=== PATIENT | female | born 1980 | race Caucasian/White ===

== ENCOUNTER 2016-09-02 15:40 | Outpatient (CLI) | payer OTHER, BC | END 2016-09-02 15:41 | disposition home or self-care (01) | DX: R68.84 Jaw pain (principal) ==

== ENCOUNTER 2018-05-18 10:08 | Outpatient (CLI) | payer OTHER ==
--- NOTE | 2018-05-18 16:11 | Ultrasound Report ---
Reason: TEST POSITIVE, DATING Procedure Date: 05/18/2018 Accession Number: [id number] / [id number] Procedure: US - OB First Trimester CPT Code: FULL RESULT: EXAM: FIRST TRIMESTER OBSTETRIC ULTRASOUND (Less than 11 weeks) EXAM DATE: 05/18/2018 10:41 AM. CLINICAL HISTORY: TEST POSITIVE, DATING. LMP: 03/13/2018. COMPARISONS: None. TECHNIQUE: Transabdominal ultrasound examination with static image documentation. CLINICAL DATES: EGA 9 weeks 3 days with OMEGA 12/18/2018 based on last menstrual period. ASSESSMENT: Gestational Sac: Single intrauterine. Mean gestational sac diameter: 34.3. Embryo: CRL (crown-rump length) 23 mm = 8 weeks 5 days. Cardiac activity: 161 beats per minute. Yolk sac: 3.1 mm. Amniotic fluid: Not accurately assessed at this gestational age. Early placenta: Not visible at this gestational age. Other: No perigestational fluid collection demonstrated. MATERNAL STRUCTURES: Uterus: Anteverted. Unremarkable. Cervix: Closed. Right Ovary/Adnexa: The ovary measures 3.8 x 1.9 x 3.1 cm, volume 11.7 cc. Unremarkable. Left Ovary/Adnexa: The ovary measures 1.9 x 1.2 x 1.8 cm, volume 2.1 cc. Unremarkable. Free Fluid: None. Other: None. IMPRESSION: 1. Single viable intrauterine at EGA 8 weeks 5 days with OMEGA 12/23/2018 based on crown-rump length, which is concordant with clinical dates. 2. Assigned dating is OMEGA 12/18/2018 based on last menstrual period. RADIA
== END 2018-05-18 10:09 | disposition home or self-care (01) ==
LOC: DI 10:08
PROVIDERS: ATTEND Nurse Practitioner Obstetrics & Gynecology
DX: Z32.01 Encounter for pregnancy test, result positive (principal)
CPT/HCPCS: 76801

== ENCOUNTER 2018-05-25 08:00 | Outpatient (CLI) | payer OTHER ==
[2018-05-25 18:52] LABS: MUDS CUTOFF CONCENTRATIONS CUTOFF CONC BELOW:
[2018-05-25 19:39] LABS: AMPHETAMINE SCREEN,URINE NEGATIVE (NEGATIVE); BENZODIAZEPINES SCREEN, URINE NEGATIVE (NEGATIVE); COCAINE SCREEN URINE NEGATIVE (NEGATIVE); METHADONE SCREEN, URINE NEGATIVE (NEGATIVE); METHAMPHETAMINES SCREEN, URINE NEGATIVE (NEGATIVE); OPIATE SCREEN, URINE NEGATIVE (NEGATIVE); OXYCODONE SCREEN, URINE NEGATIVE (NEGATIVE); PROPOXYPHENE SCREEN, URINE NEGATIVE (NEGATIVE); TRICYCLIC ANTIDEPRESSANT,URINE NEGATIVE (NEGATIVE)
== END 2018-05-25 23:59 | disposition home or self-care (01) ==
LOC: LAB.R 08:00
PROVIDERS: ATTEND Nurse Practitioner Obstetrics & Gynecology
DX: Z36.89 Encounter for other specified antenatal screening (principal)
CPT/HCPCS: 80306

== ENCOUNTER 2018-05-25 12:20 | Outpatient (CLI) | payer OTHER ==
[2018-05-25 13:03] LABS: BASOPHILS # (AUTO) 0.1 10^3/uL (0.0-0.1); EOSINOPHILS # (AUTO) 0.1 10^3/uL (0.0-0.7); EOSINOPHILS % (AUTO) 1.3 %; HGB - HEMOGLOBIN 12.3 g/dL (12.0-16.0); LYMPHOCYTES # (AUTO) 1.7 10^3/uL (1.5-3.5); LYMPHOCYTES % (AUTO) 22.9 %; MEAN CORPUSCULAR HEMOGLOBIN 30.9 pg (27.0-31.0); MEAN CORPUSCULAR HGB CONC 34.4 g/dL (32.0-36.0); MEAN PLATELET VOLUME 7.9 fL (7.9-10.8); MONOCYTES # (AUTO) 0.5 10^3/uL (0.0-1.0); MONOCYTES % (AUTO) 6.8 %; NEUTROPHILS # (AUTO) 5.2 10^3/uL (1.5-6.6); PLT - PLATELET COUNT 244 10^3/uL (130-450); RED BLOOD COUNT 3.99 10^6/uL (4.20-5.40); RED CELL DISTRIBUTION WIDTH 12.5 % (12.0-15.0); WHITE BLOOD COUNT 7.6 x10^3/uL (4.8-10.8)
[2018-05-25 13:11] LABS: BILIRUBIN,URINE NEGATIVE (NEGATIVE); GLUCOSE, URINE (UA) NEGATIVE (NEGATIVE); KETONES,URINE (UA) NEGATIVE (NEGATIVE); LEUKOCYTE ESTERASE, URINE NEGATIVE (NEGATIVE); NITRITE,URINE NEGATIVE (NEGATIVE); OCCULT BLOOD,URINE NEGATIVE (NEGATIVE); PROTEIN,URINE NEGATIVE (NEGATIVE); UROBILINOGEN,URINE 0.2 (NORMAL) E.U./dL (NORMAL)
[2018-05-25 13:18] LABS: CLARITY,URINE CLEAR (CLEAR)
[2018-05-25 13:27] LABS: BACTERIA,URINE Rare /HPF (None Seen); RBC,URINE 0-5 /HPF (0-5); SQUAMOUS EPITHELIAL CELL,UR RARE Squamous (<= Few)
[2018-05-26 13:02] LABS: HEPATITIS B SURFACE ANTIGEN NON-REACTIVE (NON-REACTIVE); HEPATITIS C ANTIBODY NON-REACTIVE (NON-REACTIVE)
[2018-05-26 13:56] LABS: HIV AG/AB 4TH GEN NON-REACTIVE (NON-REACTIVE)
== END 2018-05-25 12:21 | disposition home or self-care (01) ==
LOC: LAB 12:20
PROVIDERS: ATTEND Nurse Practitioner Obstetrics & Gynecology
DX: Z36.89 Encounter for other specified antenatal screening (principal); O09.519 Supervision of elderly primigravida, unspecified trimester
CPT/HCPCS: 36415; 80306; 81001; 81599; 85025; 86592; 86762; 86777; 86803; 86850; 86900; 86901; 87086; 87340; 87389

== ENCOUNTER 2018-08-23 11:42 | Emergency (ER) | payer MEDICAID, OTHER ==
[2018-08-23 11:56] VITALS: BP 113/72
--- NOTE | 2018-08-23 12:32 | ED Physician Documentation ---
History of Present Illness - Stated complaint Stated Complaint: RIGHT FT PX - Chief complaint Chief Complaint: Ext Problem - History obtained from History obtained from: Patient - Additonal information Additional information: Patient is a 38-year-old female, approximately 6 months , presenting with concern for right heel pain over the past 4-5 days. Patient denies inciting incident or known trauma. Patient has had Achilles tendinitis in the past and reports symptoms feel similar to such. Patient reports pain only at the heel, not into the foot or calf. Patient denies significant change in sensation, strength, range of motion to the right lower extremity. Patient also denies any particular bruising, swelling, or erythema. No particular improving or worsening factors noted to her symptoms. Review of Systems Skin: denies: Rash Musculoskeletal: reports: Extremity pain PD PAST MEDICAL HISTORY - Past Medical History Past Medical History: No - Present Medications Home Medications: Ambulatory Orders Medication Instructions Recorded Confirmed Pnv No.95/Ferrous Fum/Folic AC 08/23/18 [ Caplet] - Allergies Allergies/Adverse Reactions: Allergies Allergy/AdvReac Type Severity Reaction Status Date / Time No Known Drug Allergies Allergy Verified 08/23/18 11:56 PD ED PE NORMAL - General General: Alert and oriented X 3, No acute distress, Well developed/nourished - HEENT HEENT: Atraumatic - Cardiac Cardiac: Strong equal pulses (Cap refill brisk) - Respiratory Respiratory: No respiratory distress - Derm Derm: Normal color, Warm and dry, No rash - Extremities Extremities: No deformity, Normal ROM s pain, No edema, No calf tenderness / cord. No: No tenderness to palpate (Extremely mild tenderness over insertion point of Achilles into right heel. No evidence of significant tear or rupture. No calf tenderness or pain. Full range of motion of left lower extremity. No changes in strength or sensation to left lower extremity.) - Neuro Neuro: No motor deficit, No sensory deficit - Psych Psych: Normal mood, Normal affect Results - Vitals Vitals: Vital Signs - 24 hr 08/23/18 11:54 Temperature 36.2 C L Heart Rate 79 Respiratory 14 Rate Blood Pressure 113/72 O2 Saturation 95 Oxygen O2 Source Room air PD MEDICAL DECISION MAKING - ED course Complexity details: reviewed old records, considered differential, d/w patient ED course: Most concerning for Achilles tendinitis as opposed to significant tear or rupture, particularly given previous episodes of such and lack of traumatic mechanism at this time. Do not find evidence of sensory or motor deficit, trauma, or other infection on exam. Do not feel patient requires imaging or other interventions at this time, particularly given her current . Patient also denies any complications with or complaints related to such today. Discussed use of boot for additional support, as well as other supportive cares, return precautions and follow-up. Patient voiced understanding and is comfortable with discharge plan. Departure - Departure Disposition: 01 Home, Self Care Clinical Impression: Achilles tendonitis Qualifiers: Laterality: right Qualified Code(s): M76.61 - Achilles tendinitis, right leg Condition: Good Instructions: Tendinitis Foot Follow-Up: Katerine Nance ARNP [Primary Care Provider] - Within 3 Days Comments: May use Tylenol to help with inflammation. Also recommend ice application and elevation when not on your feet. Please use boot for extra stability and support when on your feet. Follow-up with your primary care physician and SPRING SALVAGE WORKER as scheduled or in the next 2-3 days. Return to ED sooner if expands worsening symptoms or other concerns.
== END 2018-08-23 12:59 | disposition home or self-care (01) ==
LOC: ED 11:42
DX: O99.89 Other specified diseases and conditions complicating pregnancy, childbirth and the puerperium (principal); M76.61 Achilles tendinitis, right leg
CPT/HCPCS: 99283

== ENCOUNTER 2018-08-24 13:22 | Outpatient (CLI) | payer MEDICAID, OTHER ==
--- NOTE | 2018-08-24 16:36 | Ultrasound Report ---
Reason: SCREENING,OTHER SPECIFIED Procedure Date: 08/24/2018 Accession Number: [id number] / [id number] Procedure: US - OB Detailed Eval CPT Code: FULL RESULT: EXAM: COMPLETE OBSTETRICAL ULTRASOUND EXAM DATE: 08/24/2018 01:44 PM. CLINICAL HISTORY: anatomic survey. COMPARISON: OB FIRST TRIMESTER 05/18/2018 10:41 AM. TECHNIQUE: Real-time sonographic evaluation of the fetus performed by the lock fitter. Multiple customer retention representative static images were saved for review. DATING: Established EGA 23 weeks 3 days with OMEGA 12/18/2018 based on LMP/physician stated. EGA 22 weeks 5 days with OMEGA 12/23/2018 based on prior ultrasound. EGA 21 weeks 6 days with OMEGA 12/29/2018 based on the current ultrasound. GENERAL EVALUATION Joseph . Cardiac activity: 157 bpm. movement: Visualized. Presentation: Breech. Placenta: Anterior position. No evidence for previa. Umbilical cord: 3 vessel cord. Central placental cord origin. Amniotic fluid: Subjectively low but normal measured KENAN of 10.9 cm. MVP 3.4 cm. BIOMETRY Bi-Parietal Diameter (BPD): 5.2 cm, 21 weeks 5 days Head Circumference (HC): 16.2 cm, 19 weeks 0 days Abdominal Circumference (AC): 19.6 cm, 24 weeks 2 days Femur Length (FL): 3.8 cm, 22 weeks 2 days Estimated Weight: 538 g, 19th percentile for 23 weeks 3 days. ANATOMY The intracranial structures, face/nose/lips, spine, 4 chamber heart and outflow tracts, stomach, diaphragm, kidneys, bladder, and extremities were visualized and demonstrate no abnormality. Due to positioning and subjectively low fluid, there is suboptimal visualization of the profile, cord insertion and hands. MATERNAL STRUCTURES Uterus: Unremarkable. Cervix: Long and closed. Transabdominal length 4.7 cm. Right ovary/adnexa: Unremarkable. Left ovary/adnexa: Unremarkable. Free fluid: None. IMPRESSION: 1. Joseph live intrauterine with gestational age 23 weeks 3 days based on LMP/physician stated. 2. Estimated weight is within expected limits for assigned dating (19th %ile), even though EGA based on biometry today is 11 days delayed compared to assign dates/EGA 3. Subjectively low amniotic fluid with normal measured KENAN. Suboptimal visualization of profile, cord insertion and hands. Recommend short interval follow-up ultrasound in 2 weeks to reassess growth, amniotic fluid and suboptimally visualized structures. RADIA
== END 2018-08-24 13:23 | disposition home or self-care (01) ==
LOC: DI 13:22
PROVIDERS: ATTEND Registered Nurse
DX: Z36.89 Encounter for other specified antenatal screening (principal)
CPT/HCPCS: 76811

== ENCOUNTER 2018-09-14 11:38 | Outpatient (CLI) | payer MEDICAID ==
[2018-09-14 13:07] LABS: BASOPHILS # (AUTO) 0.1 10^3/uL (0.0-0.1); BASOPHILS % (AUTO) 0.5 %; EOSINOPHILS # (AUTO) 0.2 10^3/uL (0.0-0.7); EOSINOPHILS % (AUTO) 1.4 %; HGB - HEMOGLOBIN 11.8 g/dL (12.0-16.0); LYMPHOCYTES # (AUTO) 1.9 10^3/uL (1.5-3.5); LYMPHOCYTES % (AUTO) 17.7 %; MEAN CORPUSCULAR HEMOGLOBIN 30.5 pg (27.0-31.0); MEAN CORPUSCULAR HGB CONC 33.7 g/dL (32.0-36.0); MEAN CORPUSCULAR VOLUME 90.5 fL (81.0-99.0); MEAN PLATELET VOLUME 8.3 fL (7.9-10.8); MONOCYTES # (AUTO) 0.6 10^3/uL (0.0-1.0); MONOCYTES % (AUTO) 5.9 %; NEUTROPHILS # (AUTO) 8.1 10^3/uL (1.5-6.6); NEUTROPHILS % (AUTO) 74.5 %; PLT - PLATELET COUNT 246 10^3/uL (130-450); RED BLOOD COUNT 3.87 10^6/uL (4.20-5.40); RED CELL DISTRIBUTION WIDTH 13.4 % (12.0-15.0); WHITE BLOOD COUNT 10.9 x10^3/uL (4.8-10.8)
== END 2018-09-14 11:39 | disposition home or self-care (01) ==
LOC: LAB 11:38
PROVIDERS: ATTEND Nurse Practitioner Obstetrics & Gynecology
DX: Z36.89 Encounter for other specified antenatal screening (principal)
CPT/HCPCS: 36415; 82950; 85025; 86850

== ENCOUNTER 2018-09-21 12:47 | Outpatient (CLI) | payer MEDICAID ==
--- NOTE | 2018-09-22 14:32 | Ultrasound Report ---
Reason: SCREENING,OTHER SPECIFIED Procedure Date: 09/21/2018 Accession Number: [id number] / [id number] Procedure: US - OB F/U or Repeat CPT Code: FULL RESULT: EXAM: FOLLOW-UP OBSTETRICAL ULTRASOUND EXAM DATE: 09/21/2018 01:15 PM. CLINICAL HISTORY: Incomplete anatomic survey COMPARISON: 08/24/2018. TECHNIQUE: Real-time sonographic evaluation of the fetus performed by the strickler attendant. Multiple traffic workforce representative static images were saved for review. DATING: Established EGA 27 weeks 3 days with OMEGA 12/18/2018 based on LMP. EGA 26 weeks 5 days with OMEGA 12/23/2018 based on prior ultrasound of 05/18/2018. EGA 25 weeks 6 days with OMEGA 12/29/2018 based on ultrasound of 08/24/2018. EGA 26 weeks 1 day with OMEGA 12/27/2018 based on the current ultrasound. GENERAL EVALUATION Joseph . Cardiac activity: 146 bpm. movement: Present Presentation: Breech Placenta: Anterior fundal position. Amniotic fluid: Low KENAN 6.6 cm. MVP 3.5 cm. BIOMETRY Bi-Parietal Diameter (BPD): 6.5 cm, 26 weeks 1 day Head Circumference (HC): 25 cm, 27 weeks 0 days Abdominal Circumference (AC): 22.1 cm, 26 weeks 3 days Femur Length (FL): 4.6 cm, 25 weeks 0 days Estimated Weight: 889 g, 6th percentile for 27 weeks 3 days. ANATOMY The nasal bone, profile, and hands are seen today and no anomaly is detected. Limited visualization of the cord insertion without gross abnormality identified. MATERNAL STRUCTURES Not evaluated IMPRESSION: 1. Joseph live intrauterine with gestational age 27 weeks 3 days based on LMP. 2. Estimated weight is in the 6th percentile for 27 weeks 3 days gestational age. This would be consistent with intrauterine growth retardation which is defined as less than 10% of predicted weight for gestational age. 3. KENAN is low at 6.6 cm with MVP 3.5 cm. 4. The nasal bone, profile, and hands demonstrate no anomalies on the current scan. cord insertion is grossly unremarkable. Results called to and discussed with Nohemi MURRELL On 09/22/2018 at 1420. RADIA
== END 2018-09-21 12:48 | disposition home or self-care (01) ==
LOC: DI 12:47
PROVIDERS: ATTEND Registered Nurse
DX: Z36.89 Encounter for other specified antenatal screening (principal)
CPT/HCPCS: 76816

== ENCOUNTER 2018-09-22 17:49 | Outpatient (CLI) | payer MEDICAID ==
--- NOTE | 2018-09-22 19:23 | Ultrasound Report ---
Reason: INTRAUTERINE GROWTH RESTRICTION,SECOND TRIMESTER Procedure Date: 09/22/2018 Accession Number: [id number] / [id number] Procedure: US - OB F/U or Repeat CPT Code: FULL RESULT: EXAM: FOLLOW-UP OBSTETRICAL ULTRASOUND EXAM DATE: 09/22/2018 06:02 PM. CLINICAL HISTORY: Intrauterine growth retardation COMPARISON: OB F/U OR REPEAT 09/21/2018 1:14 PM. TECHNIQUE: Real-time sonographic evaluation of the fetus performed by the food sampler. Additional transvaginal imaging to more accurately evaluate cervical length/placental position/etc. Multiple packaging sales representative static images were saved for review. DATING: Established EGA 27 weeks 4 days with OMEGA 12/18/2018 based on stated dates. GENERAL EVALUATION Joseph . Cardiac activity: 140 bpm. movement: Visualized. Presentation: Breech. Placenta: Left anterior position. No previa. Amniotic fluid: Normal. KENAN 8.6 cm. MVP 2.5 cm. ANATOMY The right renal pelvis measures 6.1 mm and the left 8.6 mm. S/D ratio near abdomen 4.38, mid cord at 3.33 and near placenta 3.42. MATERNAL STRUCTURES IMPRESSION: 1. Joseph live intrauterine in breech position with gestational age 27 weeks 4 days based on source of assigned dating. 2. KENAN 8.6 cm. 3. Bilateral renal pelviectasis, left greater than right. RADIA The call report notification system was initiated by Dr. Krzysztof Banks at 07:22 PM on 09/22/2018.
--- NOTE | 2018-09-22 19:25 | Ultrasound Report ---
Reason: INTRAUTERINE GROWTH RESTRICTION,SECOND TRIMESTER Procedure Date: 09/22/2018 Accession Number: [id number] / [id number] Procedure: US - OB Biophysical Profile CPT Code: FULL RESULT: EXAM: BIOPHYSICAL PROFILE EXAM DATE: 09/22/2018 06:24 PM. CLINICAL HISTORY: 27 week 4 day gestation for biophysical profile. COMPARISON: None. TECHNIQUE: Real-time sonographic evaluation of the fetus performed by the brick veneer maker. Multiple retail sales representative static images were saved for review. BIOPHYSICAL PROFILE Breathing = 2 Movement = 2 Tone = 2 Amniotic Fluid = 2 Total 12/29 IMPRESSION: 1. Joseph live intrauterine with gestational age 27 weeks 4 days based on established OMEGA. 2. Biophysical profile score 8 of 8. RADIA The call report notification system was initiated by Dr. Krzysztof Banks at 07:23 PM on 09/22/2018.
[2018-09-22 19:44] VITALS: BP 115/69
[2018-09-22 20:10] LABS: ALBUMIN 3.3 g/dL (3.2-5.5); BILIRUBIN,TOTAL 0.5 mg/dL (0.2-1.0); CALCIUM 8.8 mg/dL (8.5-10.3); CREATININE 0.4 mg/dL (0.4-1.0); TOTAL PROTEIN 6.5 g/dL (6.7-8.2)
--- NOTE | 2018-09-23 09:00 | PROVIDER PROGRESS NOTE ---
- HPI Chief Complaint: Other Current : Current EDU 12/18/18 Gestation 27 Weeks and 4 Days 1 Para 0 Vital Signs Temperature 97.7 F 09/22/18 19:39 Heart Rate 72 09/22/18 19:39 Respiratory Rate 18 09/22/18 19:39 Blood Pressure 115/69 09/22/18 19:39 O2 Saturation 100 09/22/18 19:39 Temperature 97.7 F 09/22/18 19:39 Heart Rate 72 09/22/18 19:39 Respiratory Rate 18 09/22/18 19:39 Blood Pressure 115/69 09/22/18 19:39 O2 Saturation 100 09/22/18 19:39 - Procedures OB Procedure Performed: NST Diagnosis/Indication for NST: Intrauterine growth restriction NST Procedure: NST Procedure Start Date 09/22/18 Start Time 19:22 Stop Time 20:07 Vibroacoustic Stimulation Used No Patient States Movement Yes Date: 09/22/18 Findings: Category 1. Pt called to come in tonight due to US finding of EFW <6%ile and KENAN of 6 at 27w. ROS: no VB, no LOF, no UC. Feeling good FM PMH: anx/dep. Otherwise uncomplicated. No hx of DM, HTN, or other chronic medical conditions SH: pt reinforced the lack of smoking and drinking and drug use. FH: no hx of IUGR. 's prior child was 7.5#. Patient was 5# at but she was a twin and EGA is not known. OB: no exposures to drugs or toxins during early . 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 Toxo neg. Say-bra 38yo G1 OMEGA 12/18/18 by LMP c/w 8w US NOB labs: Rh negative, otherwise nl Pap: normal cotest 05/25/18 Flu vax: s/p 06/22/18 Immunity screening: RI, varicella s/p infection Carrier screening: penultimate Genetic screening: normal NIPT ([employer]) Anatomy: Pyelectasis. At 20w normal (cleared on f/u). Anterior placenta, KENAN 11, 19%ile, CL 4.7cm 1h:93 2nd TM Hct: 35.1, plts 246 Rhogam: NEEDS Antibody screen neg 09/14/18 Tdap: GBS: 3rd TM GC/CT: Delivery issues: issues: Contraception: O: AVSS Nervous, NAD Abd soft, nt/nd Fundus NT NST with moderate LTV BPP 10/10 Cord dopplers average about 3.5 S/D Normal TSH, ALT, AST, Cr A/P: 38yo G1 at 27w4d by LMP c/w 8w US with new dx of IUGR. --IUGR & borderline amniotic fluid growth 6%ile at 27w / KENAN 6.6cm. Following day KENAN was 8. 19%ile at 23w. Normal NIPT, anatomy, PMH, utox. Well-dated by LMP c/w 8w US, patient with regular 28d cycles. Had declined MFM eval or MFM US for SHAQUILLE status. Plan: MFM consult. 2x/week NST. Weekly MVP and cord dopplers. Q3w growth. Start ASA 81mg daily. Hydrate 3L daily. No formal exercise. FKC daily. --Rhogam and Tdap needed next visit --Mild pyelectasis, male fetus, MFM will follow. - Plan Plan: see above
--- NOTE | 2018-09-24 07:18 | Labor Flowsheet ---
Labor Flowsheet Datetime Report Generated by CPN: 09/24/2018 07:18 Datetime: 09/24/2018 06:52 VITAL SIGNS NBP Sys/Anne-Marie/Mean (mmHg): 131 : 73 : 87 Pulse: 81 Datetime: 09/23/2018 08:34 SpO2 (%): 99 Datetime: 09/22/2018 19:19 PATIENT CARE Provider Reviewed Strip: Yes Strip Reviewed by: Deyanira COMMUNICATION Communication: RN at Bedside; Provider at Bedside Provider Notified (Name): Deyanira Larson Reason: Status Update Communication Comments: NST for IUGR 6%, low KENAN 6.6
== END 2018-09-22 20:15 | disposition home or self-care (01) ==
LOC: DI 17:49 → FBP 18:59 → DI 20:15
PROVIDERS: ATTEND Registered Nurse
DX: O36.5920 Maternal care for other known or suspected poor fetal growth, second trimester, not applicable or unspecified (principal); O32.1XX0 Maternal care for breech presentation, not applicable or unspecified; O36.8920 Maternal care for other specified fetal problems, second trimester, not applicable or unspecified; Z3A.27 27 weeks gestation of pregnancy
CPT/HCPCS: 36415; 59025; 76816; 76819; 80053; 82043; 82570; 84443; 99212

== ENCOUNTER 2018-09-26 18:20 | Outpatient (CLI) | payer MEDICAID ==
[2018-09-26 19:31] VITALS: BP 119/74
[2018-09-26] MEDS ORDERED: RHO(D) IMMUNE GLOBULIN 300 MCG SYRINGE IM ONE (20:00)
--- NOTE | 2018-09-27 11:29 | Ultrasound Report ---
Reason: INTRAUTERINE GROWTH RESTRICTION, 2ND TRIMESTER Procedure Date: 09/26/2018 Accession Number: [id number] / [id number] Procedure: US - OB Biophysical Profile CPT Code: FULL RESULT: EXAM: BIOPHYSICAL PROFILE EXAM DATE: 09/26/2018 06:29 PM. CLINICAL HISTORY: Intrauterine growth retardation. COMPARISON: OB BIOPHYSICAL PROFILE 09/22/2018 6:23 PM OB F/U OR REPEAT 09/22/2018 6:02 PM. TECHNIQUE: Real-time sonographic evaluation of the fetus performed by the electrical unit rebuilder. Multiple renewals representative static images were saved for review. DATING: Established EGA 28 weeks 1 day with OMEGA 12/18/2018. GENERAL EVALUATION Joseph . Cardiac activity: 133 bpm. movement: Visualized. Presentation: Breech. Placenta: Anterior towards the left position. No evidence for previa or abruption. Amniotic fluid: Normal. KENAN 12.9 cm. MVP 3.5 cm. BIOPHYSICAL PROFILE Breathing = 2 Movement = 2 Tone = 2 Amniotic Fluid = 2 Total 8/8 Umbilical cord Doppler demonstrates a systolic to diastolic ratio. Ranges from 2.5-2.8 at the baby's side, ranging from 1.9-2.3, ranging from 2.6-2.7 in the mid cord and ranging from 1.9 to 2.3 at the placental side. There is persistent brisk systolic upstroke and antegrade arterial flow with no absence or reversal of diastolic flow component. IMPRESSION: 1. Joseph live intrauterine with gestational age 28 weeks 1 day based on working due date. 2. Biophysical profile score 8 of 8. 3. Umbilical artery Doppler systolic to diastolic ratios for the 28th gestational week are below the 50th percentile established as 3.01 and below the 95th percentile established as 4.34. Antegrade diastolic flow remains preserved. ANNA The call report notification system was initiated by Dr. Omar Lobo at 11:28 AM on 09/27/2018. The above call report findings were discussed with Jennifer Mcmillan by Dr. Omar Lobo at 11:34 AM on 09/27/2018.
--- NOTE | 2018-09-28 10:42 | PROCEDURE REPORT ---
- HPI Diagnosis/Indication for NST: Intrauterine growth restriction Current EDU 12/18/18 Gestation 28 Weeks and 1 Days 1 Para 0 Vital Signs Temperature 97.5 F L 09/26/18 19:30 Heart Rate 84 09/26/18 19:30 Respiratory Rate 16 09/26/18 19:30 Blood Pressure 119/74 09/26/18 19:30 O2 Saturation 100 09/26/18 19:30 Temperature 97.5 F L 09/26/18 19:30 Heart Rate 84 09/26/18 19:30 Respiratory Rate 16 09/26/18 19:30 Blood Pressure 119/74 09/26/18 19:30 O2 Saturation 100 09/26/18 19:30 - NST Procedure NST Procedure Start Date 09/26/18 Start Time 19:30 Stop Time 21:00 Vibroacoustic Stimulation Used No Patient States Movement Yes - Results and Plan Findings/Impression: Category 1, toco neg Plan: Continue routine surveillance already scheduled. FKC's and PTL precautions.
--- NOTE | 2018-09-29 06:24 | Labor Flowsheet ---
Labor Flowsheet Datetime Report Generated by CPN: 09/29/2018 06:24 Datetime: 09/29/2018 06:10 Pulse: 89 SpO2 (%): 99 LaborFlag: Antepartum Datetime: 09/29/2018 06:04 VITAL SIGNS NBP Sys/Anne-Marie/Mean (mmHg): 115 : 69 : 79 Datetime: 09/26/2018 21:12 Stage of : Antepartum UTERINE ACTIVITY Monitor Mode: External Frequency (min): rare Quality: Mild Duration (sec): 30-40 Resting Tone (Palpate): Relaxed Contraction Comments: Pt. denies feeling any, Walter-Christopher ASSESSMENT A Monitor Mode: External US FHR Baseline Rate : 145 FHR Baseline Changes: No Baseline Change Variability: Moderate 6-25 bpm Accelerations: 10X10 Decelerations: None Category: Category I Comments: 28.1 weeks gest. PAIN Pain Scale: 0 Pain Presence: None/Denies MEDICATIONS Medication Comments: Rhophylac given 300 mcg IM right hip Datetime: 09/22/2018 19:19 PATIENT CARE Provider Reviewed Strip: Yes Strip Reviewed by: Deyanira COMMUNICATION Communication: RN at Bedside; Provider at Bedside Provider Notified (Name): Deyanira Notification Reason: Status Update Communication Comments: NST for IUGR 6%, low KENAN 6.6
== END 2018-09-26 21:20 | disposition home or self-care (01) ==
LOC: DI 18:20 → FBP 19:12 → DI 21:20
PROVIDERS: ATTEND Obstetrics & Gynecology
DX: O36.5930 Maternal care for other known or suspected poor fetal growth, third trimester, not applicable or unspecified (principal); Z3A.28 28 weeks gestation of pregnancy
CPT/HCPCS: 59025; 76819; 96372

== ENCOUNTER 2018-09-29 19:27 | Outpatient (CLI) | payer MEDICAID ==
[2018-09-29 20:29] VITALS: BP 117/61
--- NOTE | 2018-10-07 18:05 | PROCEDURE REPORT ---
- HPI Diagnosis/Indication for NST: Intrauterine growth restriction Current EDU 12/18/18 Gestation 28 Weeks and 4 Days 1 Para 0 Vital Signs Temperature 98.1 F 09/29/18 20:00 Heart Rate 85 09/29/18 20:00 Respiratory Rate 18 09/29/18 20:00 Blood Pressure 117/61 09/29/18 20:00 O2 Saturation 98 09/29/18 20:00 Temperature 98.1 F 09/29/18 20:00 Heart Rate 85 09/29/18 20:00 Respiratory Rate 18 09/29/18 20:00 Blood Pressure 117/61 09/29/18 20:00 O2 Saturation 98 09/29/18 20:00 - NST Procedure NST Procedure Start Date 09/29/18 Start Time 19:38 Stop Time 20:26 Vibroacoustic Stimulation Used No Patient States Movement Yes: Decreased today while at work - Results and Plan Findings/Impression: Category 1, toco neg Plan: Continue current plan
== END 2018-09-29 20:32 | disposition home or self-care (01) ==
LOC: WFO 19:27 → FBP 19:30 → WFO 20:32
PROVIDERS: ATTEND Obstetrics & Gynecology
DX: O36.5990 Maternal care for other known or suspected poor fetal growth, unspecified trimester, not applicable or unspecified (principal)
CPT/HCPCS: 59025

== ENCOUNTER 2018-10-05 12:55 | Outpatient (CLI) | payer MEDICAID ==
--- NOTE | 2018-10-05 17:48 | Ultrasound Report ---
Reason: INTRAUTERINE GROWTH RESTRICTION, 2ND TRIMESTER Procedure Date: 10/05/2018 Accession Number: [id number] / [id number] Procedure: US - OB Biophysical Profile CPT Code: FULL RESULT: EXAM: BIOPHYSICAL PROFILE EXAM DATE: 10/05/2018 01:06 PM. CLINICAL HISTORY: Intrauterine growth restriction, 2nd trimester. COMPARISON: OB BIOPHYSICAL PROFILE 09/26/2018 6:29 PM. TECHNIQUE: Real-time sonographic evaluation of the fetus performed by the brake lining finisher asbestos. Multiple sales training representative static images were saved for review. DATING: Established EGA 29 weeks 3 days with OMEGA 12/18/2018. GENERAL EVALUATION Joseph . Cardiac activity: 143 bpm. movement: Visualized. Presentation: Breech Placenta: Anterior left position. Amniotic fluid: Normal. KENAN 11.6 cm. MVP 3.9 cm. BIOPHYSICAL PROFILE Breathing = 2 Movement = 2 Tone = 2 Amniotic Fluid = 2 Total 8/8 Umbilical cord Doppler evaluation demonstrates S/D ratio range 3.15-3.84. Bilateral pyelectasis changes are again seen. IMPRESSION: 1. Joseph live intrauterine with gestational age 29 weeks 3 days based on established dates. 2. Biophysical profile score 8 of 8. ANNA
== END 2018-10-05 12:56 | disposition home or self-care (01) ==
LOC: DI 12:55
PROVIDERS: ATTEND Obstetrics & Gynecology
DX: O36.5920 Maternal care for other known or suspected poor fetal growth, second trimester, not applicable or unspecified (principal); O36.5990 Maternal care for other known or suspected poor fetal growth, unspecified trimester, not applicable or unspecified; Z3A.29 29 weeks gestation of pregnancy
CPT/HCPCS: 36415; 76819; 84436; 84443; 84480

== ENCOUNTER 2018-10-05 14:51 | Outpatient (CLI) | payer MEDICAID ==
[2018-10-05 16:09] LABS: T4 (THYROXINE) 7.89 ug/dL (6.09-12.23)
[2018-10-05 16:12] LABS: THYROID STIMULATING HORMONE 2.63 uIU/mL (0.34-5.60)
[2018-10-05 16:19] LABS: TOTAL T3 1.59 ng/mL (0.87-1.78)
== END 2018-10-05 23:59 | disposition home or self-care (01) ==
LOC: LAB 14:51
PROVIDERS: ATTEND Obstetrics & Gynecology
DX: O36.5990 Maternal care for other known or suspected poor fetal growth, unspecified trimester, not applicable or unspecified (principal)
CPT/HCPCS: 36415; 84436; 84443; 84480

== ENCOUNTER 2018-10-06 19:28 | Outpatient (CLI) | payer MEDICAID ==
[2018-10-06 20:11] VITALS: BP 109/62
--- NOTE | 2018-10-07 18:07 | PROCEDURE REPORT ---
- HPI Diagnosis/Indication for NST: Intrauterine growth restriction Current EDU 12/18/18 Gestation 29 Weeks and 4 Days 1 Para 0 Vital Signs Temperature 98.2 F 10/06/18 19:40 Heart Rate 85 10/06/18 19:40 Respiratory Rate 18 10/06/18 19:40 Blood Pressure 109/62 10/06/18 19:40 O2 Saturation 99 10/06/18 19:40 Temperature 98.2 F 10/06/18 19:40 Heart Rate 85 10/06/18 19:40 Respiratory Rate 18 10/06/18 19:40 Blood Pressure 109/62 10/06/18 19:40 O2 Saturation 99 10/06/18 19:40 - NST Procedure NST Procedure Start Date 10/06/18 Start Time 19:40 Stop Time 20:00 Vibroacoustic Stimulation Used No Patient States Movement Yes - Results and Plan Findings/Impression: Category 1, toco neg Plan: unchanged
== END 2018-10-06 20:10 | disposition home or self-care (01) ==
LOC: WFO 19:28 → FBP 19:48 → WFO 20:10
PROVIDERS: ATTEND Obstetrics & Gynecology
DX: O36.5930 Maternal care for other known or suspected poor fetal growth, third trimester, not applicable or unspecified (principal); Z3A.29 29 weeks gestation of pregnancy
CPT/HCPCS: 59025

== ENCOUNTER 2018-10-10 19:27 | Outpatient (CLI) | payer MEDICAID ==
[2018-10-10 19:41] VITALS: BP 121/66
--- NOTE | 2018-10-12 02:07 | PROCEDURE REPORT ---
- HPI Diagnosis/Indication for NST: Intrauterine growth restriction Current EDU 12/18/18 Gestation 30 Weeks and 1 Days 1 Para 0 Vital Signs Temperature 97.5 F L 10/10/18 19:38 Heart Rate 94 10/10/18 19:38 Respiratory Rate 16 10/10/18 19:38 Blood Pressure 121/66 10/10/18 19:38 O2 Saturation 100 10/10/18 19:38 Temperature 98.1 F 10/10/18 20:10 Heart Rate 94 10/10/18 19:38 Respiratory Rate 16 10/10/18 19:38 Blood Pressure 121/66 10/10/18 19:38 O2 Saturation 100 10/10/18 19:38 - NST Procedure NST Procedure Start Date 10/10/18 Start Time 19:35 Stop Time 20:10 Vibroacoustic Stimulation Used No Patient States Movement Yes EFM 130 mod ashutosh 15x15 accels, no decels TOCO: quiet - Results and Plan Findings/Impression: Cat I tracing/ Appropriate for gestational age Discharged to home FU per established care plan
== END 2018-10-10 20:11 | disposition home or self-care (01) ==
LOC: WFO 19:27 → FBP 19:29 → WFO 20:11
PROVIDERS: ATTEND Obstetrics & Gynecology
DX: O36.5930 Maternal care for other known or suspected poor fetal growth, third trimester, not applicable or unspecified (principal); Z3A.30 30 weeks gestation of pregnancy
CPT/HCPCS: 59025

== ENCOUNTER 2018-10-12 13:14 | Outpatient (CLI) | payer MEDICAID ==
--- NOTE | 2018-10-13 11:01 | Ultrasound Report ---
Reason: INTRAUTERINE GROWTH RESTRICTION, 2ND TRIMESTER Procedure Date: 10/12/2018 Accession Number: [id number] / [id number] Procedure: US - OB F/U or Repeat CPT Code: FULL RESULT: EXAM: FOLLOW-UP OBSTETRICAL ULTRASOUND INCLUDING BIOPHYSICAL PROFILE AND CORD DOPPLER AND BIOMETRY. EXAM DATE: 10/12/2018 01:31 PM. CLINICAL HISTORY: INTRAUTERINE GROWTH RESTRICTION, 2ND TRIMESTER. COMPARISON: OB F/U OR REPEAT 09/22/2018 6:02 PM OB BIOPHYSICAL PROFILE 10/05/2018 1:06 PM OB BIOPHYSICAL PROFILE 09/26/2018 6:29 PM. TECHNIQUE: Real-time sonographic evaluation of the fetus performed by the district loss prevention manager. Multiple financial representative static images were saved for review. DATING: Established EGA 30 weeks 3 days with OMEGA 12/10/2018 based on LMP. EGA 29 weeks 6 days with OMEGA 12/22/2018 based on the current ultrasound. GENERAL EVALUATION Joseph . Cardiac activity: 152 bpm. movement: Visualized. Presentation: Breech Placenta: Anterior and to the left position. Amniotic fluid: Normal. KENAN 14.1 cm. MVP 5.3 cm. BIOMETRY Bi-Parietal Diameter (BPD): 7.6 cm, 30 weeks 4 days Head Circumference (HC): 28.6 cm, 31 weeks 3 days Abdominal Circumference (AC): 26.0 cm, 30 weeks 1 day Femur Length (FL): 5.1 cm, 27 weeks 1 day Estimated Weight: 1369 g, 11th percentile for 30 weeks 3 days. ANATOMY The left kidney demonstrates hydronephrosis of up to 1.1 cm and the right kidney demonstrates mild prominence of the pelvis at up to 0.6 cm. BIOPHYSICAL PROFILE Breathing = 2 Movement = 2 Tone = 2 Amniotic Fluid = 2 Total 12/29 Cord Doppler: Antegrade diastolic flow is preserved at all sampled stations. At the side, the systolic diastolic ratio is up to 3.35. In the mid cord the systolic diastolic ratio reaches up to 3.39 At the placental side the maximal sampled systolic diastolic ratio was 3.29. The 50th percentile for an established gestational age of 30 weeks is 2.83 and the 95th percentile for the same gestational age is 4.04. IMPRESSION: 1. Joseph live intrauterine with gestational age 30 weeks 3 days based on LMP. 2. Left hydronephrosis and right pelviectasis as described. 3. Consistent interval growth compared to the first ultrasound, femur length is low whereas biparietal diameter, head circumference and abdominal circumference are around the 35th percentile. 4. Biophysical profile score 8 of 8. 5. Preserved antegrade flow on umbilical cord Doppler as described. RADIA
== END 2018-10-12 13:15 | disposition home or self-care (01) ==
LOC: DI 13:14
PROVIDERS: ATTEND Obstetrics & Gynecology
DX: O36.5920 Maternal care for other known or suspected poor fetal growth, second trimester, not applicable or unspecified (principal); O36.8930 Maternal care for other specified fetal problems, third trimester, not applicable or unspecified; Z3A.30 30 weeks gestation of pregnancy
CPT/HCPCS: 76816; 76819

== ENCOUNTER 2018-10-13 19:33 | Outpatient (CLI) | payer MEDICAID ==
[2018-10-13 20:15] VITALS: BP 105/66
--- NOTE | 2018-10-18 08:53 | PROCEDURE REPORT ---
- HPI Diagnosis/Indication for NST: Intrauterine growth restriction Current EDU 12/18/18 Gestation 30 Weeks and 4 Days 1 Para 0 Vital Signs Temperature 37.3 C 10/13/18 20:04 Heart Rate 91 10/13/18 20:04 Respiratory Rate 18 10/13/18 20:04 Blood Pressure 105/66 10/13/18 20:04 O2 Saturation 98 10/13/18 20:04 Temperature 37.3 C 10/13/18 20:04 Heart Rate 91 10/13/18 20:04 Respiratory Rate 18 10/13/18 20:04 Blood Pressure 105/66 10/13/18 20:04 O2 Saturation 98 10/13/18 20:04 - NST Procedure NST Procedure Start Date 10/13/18 Start Time 20:00 Stop Time 20:58 Vibroacoustic Stimulation Used No Patient States Movement Yes - Results and Plan Findings/Impression: baseline 130's accelerations present reactive NST Plan: continue with NST and MFM US
== END 2018-10-13 21:00 | disposition home or self-care (01) ==
LOC: WFO 19:33 → FBP 19:35 → WFO 21:00
PROVIDERS: ATTEND Obstetrics & Gynecology
DX: O36.5930 Maternal care for other known or suspected poor fetal growth, third trimester, not applicable or unspecified (principal); Z3A.30 30 weeks gestation of pregnancy
CPT/HCPCS: 59025

== ENCOUNTER 2018-10-17 19:27 | Outpatient (CLI) | payer MEDICAID ==
[2018-10-17 19:39] VITALS: BP 113/69
--- NOTE | 2018-10-18 08:56 | PROCEDURE REPORT ---
- HPI Diagnosis/Indication for NST: Intrauterine growth restriction Current EDU 12/18/18 Gestation 31 Weeks and 1 Days 1 Para 0 Vital Signs Temperature 36.3 C L 10/17/18 19:35 Heart Rate 84 10/17/18 19:35 Respiratory Rate 18 10/17/18 19:35 Blood Pressure 113/69 10/17/18 19:35 O2 Saturation 100 10/17/18 19:35 Temperature 36.3 C L 10/17/18 19:35 Heart Rate 84 10/17/18 19:35 Respiratory Rate 18 10/17/18 19:35 Blood Pressure 113/69 10/17/18 19:35 O2 Saturation 100 10/17/18 19:35 - NST Procedure NST Procedure Start Date 10/17/18 Start Time 19:35 Stop Time 20:39 Vibroacoustic Stimulation Used No Patient States Movement Yes - Results and Plan Findings/Impression: base line 140. good FM, Accelerations present. Reactive NST Plan: [facility] visit tomorrow.
== END 2018-10-17 20:48 | disposition home or self-care (01) ==
LOC: WFO 19:27 → FBP 19:30 → WFO 20:48
PROVIDERS: ATTEND Obstetrics & Gynecology
DX: O36.5930 Maternal care for other known or suspected poor fetal growth, third trimester, not applicable or unspecified (principal); Z3A.31 31 weeks gestation of pregnancy
CPT/HCPCS: 59025

== ENCOUNTER 2018-10-18 15:49 | Outpatient (CLI) | payer MEDICAID ==
--- NOTE | 2018-10-19 17:00 | Ultrasound Report ---
Reason: INTRAUTERINE GROWTH RESTRICTION, 2ND TRIMESTER Procedure Date: 10/18/2018 Accession Number: [id number] / [id number] Procedure: US - OB Biophysical Profile CPT Code: FULL RESULT: EXAM: BIOPHYSICAL PROFILE EXAM DATE: 10/18/2018 04:59 PM. CLINICAL HISTORY: INTRAUTERINE GROWTH RESTRICTION, for follow-up COMPARISON: 10/12/2018 and 10/05/2018. TECHNIQUE: Real-time sonographic evaluation of the fetus performed by the jury consultant. Multiple appliance service representative static images were saved for review. DATING: Established EGA 31 weeks 2 days with OMEGA 12/18/2018. GENERAL EVALUATION Joseph . Cardiac activity: 171 bpm. movement: Visualized. Presentation: Breech Placenta: Anterior left lateral position. No evidence for previa or abruption. Amniotic fluid: Normal. KENAN 9.8 cm. MVP 2.7 cm. BIOPHYSICAL PROFILE Breathing = 2 Movement = 2 Tone = 2 Amniotic Fluid = 2 Total 8/8 UMBILICAL ARTERY DOPPLER: Antegrade diastolic flow. side: SD ratio maximum 2.8 Placental side SD ratio maximum 2.8 Mid cord SD ratio maximum 2.8 IMPRESSION: 1. Joseph live intrauterine with gestational age 31 weeks 2 days based on established OMEGA. 2. Biophysical profile score 8 of 8. 3. Antegrade umbilical arterial flow. RADIA
== END 2018-10-18 15:50 | disposition home or self-care (01) ==
LOC: DI 15:49
PROVIDERS: ATTEND Obstetrics & Gynecology
DX: O36.5920 Maternal care for other known or suspected poor fetal growth, second trimester, not applicable or unspecified (principal); Z3A.31 31 weeks gestation of pregnancy
CPT/HCPCS: 76819

== ENCOUNTER 2018-10-20 19:33 | Outpatient (CLI) | payer MEDICAID ==
[2018-10-20 19:56] VITALS: BP 109/67
--- NOTE | 2018-10-22 07:49 | PROCEDURE REPORT ---
- HPI Diagnosis/Indication for NST: Intrauterine growth restriction Current EDU 12/18/18 Gestation 31 Weeks and 4 Days 1 Para 0 Vital Signs Temperature 98.2 F 10/20/18 19:47 Heart Rate 82 10/20/18 19:47 Respiratory Rate 18 10/20/18 19:47 Blood Pressure 109/67 10/20/18 19:47 O2 Saturation 98 10/20/18 19:47 Temperature 98.2 F 10/20/18 19:47 Heart Rate 82 10/20/18 19:47 Respiratory Rate 18 10/20/18 19:47 Blood Pressure 109/67 10/20/18 19:47 O2 Saturation 98 10/20/18 19:47 - NST Procedure NST Procedure Start Date 10/20/18 Start Time 19:42 Stop Time 21:13 Vibroacoustic Stimulation Used No Patient States Movement Yes - Results and Plan Findings/Impression: Category 1 NST [place] q2-10min, UC not felt by patient Plan: routine IUGR care
== END 2018-10-20 21:15 | disposition home or self-care (01) ==
LOC: WFO 19:33 → FBP 19:35 → WFO 21:15
PROVIDERS: ATTEND Obstetrics & Gynecology
DX: O36.5930 Maternal care for other known or suspected poor fetal growth, third trimester, not applicable or unspecified (principal); Z3A.31 31 weeks gestation of pregnancy
CPT/HCPCS: 59025

== ENCOUNTER 2018-10-24 19:25 | Outpatient (CLI) | payer MEDICAID ==
[2018-10-24 19:42] VITALS: BP 115/70
--- NOTE | 2018-10-26 10:26 | PROCEDURE REPORT ---
- HPI Diagnosis/Indication for NST: Intrauterine growth restriction (Pt is having twice weekly NST with US for growth and umbilical volesemitry.) Current EDU 12/18/18 Gestation 32 Weeks and 1 Days 1 Para 0 Vital Signs Temperature 36.5 C 10/24/18 19:39 Heart Rate 92 10/24/18 19:39 Respiratory Rate 18 10/24/18 19:39 Blood Pressure 115/70 10/24/18 19:39 O2 Saturation 98 10/24/18 19:39 Temperature 36.5 C 10/24/18 19:39 Heart Rate 92 10/24/18 19:39 Respiratory Rate 18 10/24/18 19:39 Blood Pressure 115/70 10/24/18 19:39 O2 Saturation 98 10/24/18 19:39 - NST Procedure NST Procedure Start Date 10/24/18 Start Time 19:40 Stop Time 21:13 Vibroacoustic Stimulation Used No Patient States Movement Yes Strip reviewed and noted to be reactive following VAS. - Results and Plan Findings/Impression: 31 weeks IUGR Reactive NST.
--- NOTE | 2018-10-26 10:36 | PROCEDURE REPORT ---
- HPI Diagnosis/Indication for NST: Intrauterine growth restriction Current EDU 12/18/18 Gestation 32 Weeks and 1 Days 1 Para 0 Vital Signs Temperature 36.5 C 10/24/18 19:39 Heart Rate 92 10/24/18 19:39 Respiratory Rate 18 10/24/18 19:39 Blood Pressure 115/70 10/24/18 19:39 O2 Saturation 98 10/24/18 19:39 Temperature 36.5 C 10/24/18 19:39 Heart Rate 92 10/24/18 19:39 Respiratory Rate 18 10/24/18 19:39 Blood Pressure 115/70 10/24/18 19:39 O2 Saturation 98 10/24/18 19:39 - NST Procedure NST Procedure Start Date 10/24/18 Start Time 19:40 Stop Time 21:13 Vibroacoustic Stimulation Used No Patient States Movement Yes
== END 2018-10-24 20:11 | disposition home or self-care (01) ==
LOC: WFO 19:25 → FBP 19:28 → WFO 20:11
PROVIDERS: ATTEND Obstetrics & Gynecology
DX: O36.5930 Maternal care for other known or suspected poor fetal growth, third trimester, not applicable or unspecified (principal); Z3A.31 31 weeks gestation of pregnancy
CPT/HCPCS: 59025

== ENCOUNTER 2018-10-28 19:34 | Outpatient (CLI) | payer MEDICAID | END 2018-10-28 19:35 | disposition home or self-care (01) | LOC: WFO 19:34 | PROVIDERS: ATTEND Obstetrics & Gynecology | DX: O36.5930 Maternal care for other known or suspected poor fetal growth, third trimester, not applicable or unspecified (principal) ==

== ENCOUNTER 2018-10-28 19:38 | Outpatient (CLI) | payer MEDICAID ==
[2018-10-28 20:55] VITALS: BP 112/57
[2018-10-28] MEDS ORDERED: MAGNESIUM SULFATE IV ONE (21:40)
[2018-10-28] MEDS ORDERED: [UNRECOGNIZED DRUG - OTHER] IV ONE (21:40)
--- NOTE | 2018-11-04 15:49 | PROCEDURE REPORT ---
- HPI Diagnosis/Indication for NST: Other (AGA and Small for gestational age) Current EDU 12/18/18 Gestation 32 Weeks and 5 Days 1 Para 0 Vital Signs Temperature 98.1 F 10/28/18 19:51 Heart Rate 92 10/28/18 19:51 Respiratory Rate 16 10/28/18 19:51 Blood Pressure 112/57 L 10/28/18 19:51 O2 Saturation 99 10/28/18 19:51 Temperature 98.1 F 10/28/18 19:51 Heart Rate 92 10/28/18 19:51 Respiratory Rate 16 10/28/18 19:51 Blood Pressure 112/57 L 10/28/18 19:51 O2 Saturation 99 10/28/18 19:51 - NST Procedure NST Procedure Start Date 10/28/18 Start Time 19:44 Stop Time 20:12 Vibroacoustic Stimulation Used No Patient States Movement Yes EFM 135 mod ashutosh 15x15 accels no decels TOCO: quiet Cat I tracing - Results and Plan Findings/Impression: 38 yo G1Po at 32wga here for NST Cat I tracing Cont with gaby MURRAYC including twce weekly NST/Weekly us
== END 2018-10-28 20:47 | disposition home or self-care (01) ==
LOC: WFO 19:38 → FBP 20:17 → WFO 20:17
PROVIDERS: ATTEND Obstetrics & Gynecology
DX: O36.5930 Maternal care for other known or suspected poor fetal growth, third trimester, not applicable or unspecified (principal); O41.03X0 Oligohydramnios, third trimester, not applicable or unspecified; Z3A.32 32 weeks gestation of pregnancy
CPT/HCPCS: 59025

== ENCOUNTER 2018-11-04 19:32 | Outpatient (CLI) | payer MEDICAID ==
[2018-11-04 20:12] VITALS: BP 112/71
--- NOTE | 2018-11-05 09:37 | PROCEDURE REPORT ---
- HPI Diagnosis/Indication for NST: Intrauterine growth restriction Current EDU 12/18/18 Gestation 33 Weeks and 5 Days 1 Para 0 Vital Signs Temperature 36.6 C 11/04/18 20:00 Heart Rate 86 11/04/18 20:00 Respiratory Rate 18 11/04/18 20:00 Blood Pressure 112/71 11/04/18 20:00 O2 Saturation 98 11/04/18 20:00 Temperature 36.6 C 11/04/18 20:00 Heart Rate 86 11/04/18 20:00 Respiratory Rate 18 11/04/18 20:00 Blood Pressure 112/71 11/04/18 20:00 O2 Saturation 98 11/04/18 20:00 - NST Procedure NST Procedure Start Date 11/04/18 Start Time 19:50 Stop Time 20:20 Vibroacoustic Stimulation Used No Patient States Movement Yes The patient had her NST test on Sunday, November 04, 2018.This was reactive. - Results and Plan Findings/Impression: The NST was reactive. Plan: The patient was discharged home. She will keep her regularly scheduled visits and regularly scheduled NSTs.
== END 2018-11-04 20:30 | disposition home or self-care (01) ==
LOC: WFO 19:32 → FBP 19:35 → WFO 20:30
PROVIDERS: ATTEND Obstetrics & Gynecology
DX: O36.5930 Maternal care for other known or suspected poor fetal growth, third trimester, not applicable or unspecified (principal); Z3A.33 33 weeks gestation of pregnancy
CPT/HCPCS: 59025

== ENCOUNTER 2018-11-11 19:33 | Outpatient (CLI) | payer MEDICAID ==
[2018-11-11 19:44] VITALS: BP 121/74
--- NOTE | 2018-11-12 12:15 | PROCEDURE REPORT ---
- HPI Current EDU 12/18/18 Gestation 34 Weeks and 5 Days 1 Para 0 Vital Signs Temperature 97.5 F L 11/11/18 19:40 Heart Rate 79 11/11/18 19:40 Respiratory Rate 16 11/11/18 19:40 Blood Pressure 121/74 11/11/18 19:40 O2 Saturation 100 11/11/18 19:40 Temperature 98.1 F 11/11/18 20:00 Heart Rate 79 11/11/18 19:40 Respiratory Rate 16 11/11/18 19:40 Blood Pressure 121/74 11/11/18 19:40 O2 Saturation 100 11/11/18 19:40 - NST Procedure NST Procedure Start Date 11/11/18 Start Time 19:39 Stop Time 20:01 Vibroacoustic Stimulation Used No Patient States Movement Yes EFM 125 mod ashutosh 15x15 accels no decels TOCO: quiet Cat I tracing - Results and Plan Findings/Impression: 38 yo at 34w5d here with IUGR/AMA here for NST Cat I tracing Plan: Cont twice weekly NST and weekly KENAN
== END 2018-11-11 20:13 | disposition home or self-care (01) ==
LOC: WFO 19:33 → FBP 19:34 → WFO 20:13
PROVIDERS: ATTEND Obstetrics & Gynecology
DX: O36.5930 Maternal care for other known or suspected poor fetal growth, third trimester, not applicable or unspecified (principal); Z3A.34 34 weeks gestation of pregnancy
CPT/HCPCS: 59025

== ENCOUNTER 2018-11-18 19:40 | Outpatient (CLI) | payer MEDICAID ==
[2018-11-18 19:53] VITALS: BP 114/72
--- NOTE | 2018-11-19 10:20 | PROCEDURE REPORT ---
- HPI Diagnosis/Indication for NST: Intrauterine growth restriction Current EDU 12/18/18 Gestation 35 Weeks and 5 Days 1 Para 0 Vital Signs Temperature 36.5 C 11/18/18 19:52 Heart Rate 78 11/18/18 19:52 Respiratory Rate 16 11/18/18 19:52 Blood Pressure 114/72 11/18/18 19:52 O2 Saturation 100 11/18/18 19:52 Temperature 36.5 C 11/18/18 19:52 Heart Rate 78 11/18/18 19:52 Respiratory Rate 16 11/18/18 19:52 Blood Pressure 114/72 11/18/18 19:52 O2 Saturation 100 11/18/18 19:52 - NST Procedure NST Procedure Start Date 11/18/18 Start Time 19:50 Stop Time 20:01 Patient States Movement Yes - Results and Plan Findings/Impression: Reactive NST ( Note written and strip viewed on 11/19/2018, Test administered on 11/18/2018) Impression: IUP at 35weeks 5 days IUGR Plan: Pt was discharged to home. She is scheduled for a C-sec at [facility] in [place] on 11/22/2018
== END 2018-11-18 20:33 | disposition home or self-care (01) ==
LOC: WFO 19:40 → FBP 19:42 → WFO 20:33
PROVIDERS: ATTEND Obstetrics & Gynecology
DX: O36.5930 Maternal care for other known or suspected poor fetal growth, third trimester, not applicable or unspecified (principal); Z3A.35 35 weeks gestation of pregnancy
CPT/HCPCS: 59025

== ENCOUNTER 2018-11-21 16:58 | Outpatient (CLI) | payer MEDICAID ==
[2018-11-21 17:27] VITALS: BP 109/66
--- NOTE | 2018-11-22 14:36 | PROCEDURE REPORT ---
- HPI Diagnosis/Indication for NST: Intrauterine growth restriction Current EDU 12/18/18 Gestation 36 Weeks and 1 Days 1 Para 0 Vital Signs Temperature 36.8 C 11/21/18 17:22 Heart Rate 94 11/21/18 17:22 Respiratory Rate 16 11/21/18 17:22 Blood Pressure 109/66 11/21/18 17:22 O2 Saturation 100 11/21/18 17:22 Temperature 36.8 C 11/21/18 17:22 Heart Rate 94 11/21/18 17:22 Respiratory Rate 16 11/21/18 17:22 Blood Pressure 109/66 11/21/18 17:22 O2 Saturation 100 11/21/18 17:22 - NST Procedure NST Procedure Start Date 11/21/18 Start Time 17:10 Stop Time 17:36 Vibroacoustic Stimulation Used Yes Patient States Movement Yes - Results and Plan Findings/Impression: Reactive NST Impression: Intrauterine at 36 weeks 1 day gestation IUGR Oligohydramnios Plan: The patient was discharged home. She is scheduled for a section on 11/22/2018 [facility].
--- NOTE | 2018-11-24 00:03 | Labor Flowsheet ---
Labor Flowsheet Datetime Report Generated by CPN: 11/24/2018 00:03 Datetime: 11/23/2018 23:13 VITAL SIGNS NBP Sys/Anne-Marie/Mean (mmHg): 109 : 73 : 82 Pulse: 81 SpO2 (%): 100 COMMUNICATION LaborFlag: Antepartum
== END 2018-11-21 17:40 | disposition home or self-care (01) ==
LOC: WFO 16:58 → FBP 17:15 → WFO 17:40
PROVIDERS: ATTEND Obstetrics & Gynecology
DX: O36.5930 Maternal care for other known or suspected poor fetal growth, third trimester, not applicable or unspecified (principal); O41.03X0 Oligohydramnios, third trimester, not applicable or unspecified; Z3A.36 36 weeks gestation of pregnancy
CPT/HCPCS: 59025

== ENCOUNTER 2019-07-20 19:55 | Emergency (ER) | payer MEDICAID, OTHER ==
[2019-07-20] MEDS ORDERED: DEXAMETHASONE 10 MG/ML VIAL PO STA (21:16)
[2019-07-20] MEDS ORDERED: HYDROcod/ACETAM 5/325 MG TABLET PO STA (21:16)
[2019-07-20] MEDS ORDERED: CHERRY SYRUP 10 ML UDC PO ONE (21:16)
--- NOTE | 2019-07-20 21:17 | ED Physician Documentation ---
PD HPI UPPER EXT INJURY - Stated complaint Stated Complaint: RT ARM PX - Chief complaint Chief Complaint: Ext Problem - History obtained from History obtained from: Patient (She slept funny about a week ago and ever since then has had severe right elbow pain that was much worse today. The pain is right at the tip of the olecranon. It is terrible if anything touches the olecranon and she cannot straighten the elbow now. No specific injury. She never had this before. No fevers or chills. It was difficult for her to shift her car tonight because of the pain.) Review of Systems Constitutional: denies: Fever, Chills Nose: denies: Rhinorrhea / runny nose, Congestion Throat: denies: Sore throat Cardiac: denies: Chest pain / pressure, Palpitations Respiratory: denies: Dyspnea, Cough PD PAST MEDICAL HISTORY - Past Medical History Past Medical History: No Cardiovascular: None Respiratory: None Neuro: None Endocrine/Autoimmune: None GI: None FIRE ENGINE PUMP OPERATOR: None : None HEENT: None Psych: None Musculoskeletal: None Derm: None - Past Surgical History Past Surgical History: Yes /FIRE ENGINE PUMP OPERATOR: section - Present Medications Home Medications: Ambulatory Orders Medication Instructions Recorded Confirmed Pnv No.95/Ferrous Fum/Folic AC 08/23/18 [ [place]] Hydrocodone/Acetaminophen 1 - 2 each PO Q6H PRN #14 tablet 07/20/19 [Hydrocodon-Acetaminophen 5-325] predniSONE [Deltasone] 60 mg PO DAILY 5 Days #15 tablet 07/20/19 - Allergies Allergies/Adverse Reactions: Allergies Allergy/AdvReac Type Severity Reaction Status Date / Time No Known Drug Allergies Allergy Verified 08/23/18 11:56 - Social History Does the pt smoke?: No Smoking Status: Never smoker Does the pt drink ETOH?: Yes Does the pt have substance abuse?: No - Immunizations Immunizations are current?: Yes - POLST Patient has POLST: No PD ED PE NORMAL - Vitals Vital signs reviewed: Yes - General General: Alert and oriented X 3, No acute distress - Extremities Extremities: Other (She is exquisitely tender over the tip of the olecranon with warmth. Maybe very mild redness, but no swelling consistent with a significant olecranon bursitis. She has painless pronation and supination of the right forearm, but cannot extend the elbow all the way. Medial and lateral ep icondyles are nontender. Normal radial and ulnar pulses and sensation throughout the right hand.) - Neuro Neuro: Alert and oriented X 3, Normal speech Results - Vitals Vitals: Vital Signs - 24 hr 07/20/19 19:58 Temperature 36.8 C Heart Rate 79 Respiratory 16 Rate Blood Pressure 130/86 H O2 Saturation 98 Oxygen O2 Source Room air - Labs Labs: Laboratory Tests 07/20/19 07/20/19 21:36 21:36 WBC 9.8 RBC 4.69 Hgb 13.9 Hct 42.9 MCV 91.5 MCH 29.6 MCHC 32.4 RDW 12.8 Plt Count 306 MPV 9.3 Neut # (Auto) 6.0 Lymph # (Auto) 2.9 Dodge # (Auto) 0.7 Eos # (Auto) 0.2 Baso # (Auto) 0.1 Absolute Nucleated RBC 0.00 Nucleated RBC % 0.0 Sodium 140 Potassium 3.8 Chloride 106 Carbon Dioxide 24 Anion Gap 10.0 BUN 13 Creatinine 0.8 Estimated GFR (MDRD) 79 L Glucose 103 H Uric Acid 3.8 Calcium 9.4 Total Bilirubin 0.6 AST 20 ALT 31 Alkaline Phosphatase 53 Total Protein 7.9 Albumin 4.2 Globulin 3.7 Albumin/Globulin Ratio 1.1 Lipase 32 - Rads (name of study) 3v R elbow Radiology: EMP read contemporaneously (Read officially as normal, there is some calcific tendinitis on the olecranon though.) PD MEDICAL DECISION MAKING - ED course ED course: 39-year-old woman with an acute right elbow P pain. Right over the olecranon. Not an obvious olecranon bursitis with swelling but probably could have a smoldering version of the same given the sensitivity there. Departure - Departure Disposition: 01 Home, Self Care Clinical Impression: Olecranon bursitis of right elbow Condition: Good Record reviewed to determine appropriate education?: Yes Instructions: ED Bursitis, ED Tendinitis Calcific Follow-Up: [facility] [Provider Group] - Within 1 week Prescriptions: Hydrocodone/Acetaminophen [Hydrocodon-Acetaminophen 5-325] 1 - 2 each PO Q6H PRN #14 tablet PRN Reason: pain predniSONE [Deltasone] 60 mg PO DAILY 5 Days #15 tablet Forms: Activity restrictions
[2019-07-20 21:43] LABS: BASOPHILS # (AUTO) 0.1 10^3/uL (0.0-0.1); BASOPHILS % (AUTO) 0.7 %; EOSINOPHILS # (AUTO) 0.2 10^3/uL (0.0-0.7); EOSINOPHILS % (AUTO) 2.1 %; HGB - HEMOGLOBIN 13.9 g/dL (12.0-16.0); LYMPHOCYTES # (AUTO) 2.9 10^3/uL (1.5-3.5); LYMPHOCYTES % (AUTO) 29.1 %; MEAN CORPUSCULAR HEMOGLOBIN 29.6 pg (27.0-31.0); MEAN CORPUSCULAR HGB CONC 32.4 g/dL (32.0-36.0); MEAN CORPUSCULAR VOLUME 91.5 fL (81.0-99.0); MEAN PLATELET VOLUME 9.3 fL (7.9-10.8); MONOCYTES # (AUTO) 0.7 10^3/uL (0.0-1.0); MONOCYTES % (AUTO) 6.9 %; NEUTROPHILS % (AUTO) 60.9 %; PLT - PLATELET COUNT 306 10^3/uL (130-450); RED BLOOD COUNT 4.69 10^6/uL (4.20-5.40); RED CELL DISTRIBUTION WIDTH 12.8 % (12.0-15.0); WHITE BLOOD COUNT 9.8 x10^3/uL (4.8-10.8)
--- NOTE | 2019-07-20 21:48 | XRAY Report ---
Reason: elbow pain Procedure Date: 07/20/2019 Accession Number: [id number] / [id number] Procedure: XR - Elbow 3 View RT CPT Code: Final Report FULL RESULT: EXAM: RIGHT ELBOW RADIOGRAPHY EXAM DATE: 07/20/2019 09:35 PM. CLINICAL HISTORY: Elbow pain. COMPARISON: None. TECHNIQUE: 3 views. FINDINGS: Bones: No acute fracture. No suspicious osseous lesion. Joints: No significant elbow joint effusion. No significant joint space narrowing. No dislocation. Other: None. IMPRESSION: No acute osseous abnormality. If pain persists or worsens, a nonemergent/outpatient MRI elbow may be helpful for further evaluation. RADIA
[2019-07-20 21:56] LABS: ALBUMIN 4.2 g/dL (3.2-5.5); ALBUMIN/GLOBULIN RATIO 1.1 (1.0-2.2); BILIRUBIN,TOTAL 0.6 mg/dL (0.2-1.0); CALCIUM 9.4 mg/dL (8.5-10.3); CREATININE 0.8 mg/dL (0.4-1.0); TOTAL PROTEIN 7.9 g/dL (6.7-8.2); URIC ACID 3.8 mg/dL (2.6-7.2)
[2019-07-20 22:15] VITALS: BP 112/66
== END 2019-07-20 22:26 | disposition home or self-care (01) ==
LOC: ED 19:55
DX: M70.21 Olecranon bursitis, right elbow (principal); Y93.84 Activity, sleeping
CPT/HCPCS: 36415; 73080; 80053; 83690; 84550; 85025; 99283; 99284; A9270

== ENCOUNTER 2020-04-21 13:08 | Outpatient (CLI) | payer OTHER | END 2020-04-21 13:09 | disposition home or self-care (01) | LOC: LAB 13:08 | PROVIDERS: ATTEND Registered Nurse | DX: B34.9 Viral infection, unspecified (principal); Z20.828 Contact with and (suspected) exposure to other viral communicable diseases ==

== ENCOUNTER 2023-01-12 10:45 | Emergency (ER) | payer OTHER ==
[2023-01-12 11:16] LABS: BASOPHILS # (AUTO) 0.1 10^3/uL (0.0-0.1); BASOPHILS % (AUTO) 0.9 %; EOSINOPHILS % (AUTO) 0.2 %; HCT - HEMATOCRIT 42.6 % (37.0-47.0); HGB - HEMOGLOBIN 14.4 g/dL (12.0-16.0); LYMPHOCYTES # (AUTO) 1.2 10^3/uL (1.5-3.5); LYMPHOCYTES % (AUTO) 18.2 %; MEAN CORPUSCULAR HEMOGLOBIN 32.9 pg (27.0-31.0); MEAN CORPUSCULAR HGB CONC 33.8 g/dL (32.0-36.0); MEAN CORPUSCULAR VOLUME 97.3 fL (81.0-99.0); MEAN PLATELET VOLUME 9.6 fL (7.9-10.8); MONOCYTES # (AUTO) 0.6 10^3/uL (0.0-1.0); MONOCYTES % (AUTO) 8.7 %; NEUTROPHILS # (AUTO) 4.8 10^3/uL (1.5-6.6); NEUTROPHILS % (AUTO) 71.7 %; PLT - PLATELET COUNT 197 10^3/uL (130-450); RED BLOOD COUNT 4.38 10^6/uL (4.20-5.40); RED CELL DISTRIBUTION WIDTH 12.8 % (12.0-15.0); WHITE BLOOD COUNT 6.7 x10^3/uL (4.8-10.8)
[2023-01-12 11:54] LABS: ALBUMIN 4.6 g/dL (3.2-5.5); ALBUMIN/GLOBULIN RATIO 1.4 (1.0-2.2); BILIRUBIN,TOTAL 1.3 mg/dL (0.2-1.0); CALCIUM 9.8 mg/dL (8.5-10.3); CREATININE 0.8 mg/dL (0.6-1.3); POTASSIUM 3.4 mmol/L (3.5-4.5); TOTAL PROTEIN 7.8 g/dL (6.4-8.9)
--- OUTSIDE RECORDS SUMMARY | 2023-01-12 12:01 | EXTERNAL MEDICAL SUMMARY RPT | Continuity of Care Document ---
Author Name Unknown Address [address] [place] [address] Phone Organization [facility] Address [address] [place] [address] Phone Care Team Providers Care Mining Engineer Name Role Phone Unavailable Unavailable Unavailable Andrey Daley Pa-C Unavailable Unavailable Medications date description facility 2023-01-12 00:00 sucralfate [facility] 2023-01-12 00:00 ondansetron [facility] 2023-01-12 00:00 ondansetron [facility] 2023-01-12 00:00 ONDANSETRON HCL [facility] [place] 2023-01-12 00:00 sucralfate [facility] [place] 2023-01-12 00:00 sucralfate [facility] [place] 2023-01-12 00:00 sucralfate [facility] [place] 2023-01-12 00:00 ondansetron [facility] [place] 2023-01-12 00:00 ondansetron [facility] Problems date description facility 2023-01-12 00:00 Nausea and vomiting [facility] [place] 2023-01-12 00:00 Renal pain [facility] [place] 2023-01-12 00:00 Unspecified disorder of kidney and ureter [facility] [place] 2023-01-12 00:00 Nausea with vomiting [facility] [place] 2023-01-12 00:00 Abdominal pain, righ t upper quadrant [facility] [place] 2023-01-12 00:00 Disorder of kidney a nd ureter, unspecified [facility] 2023-01-12 00:00 Right upper quadrant pain [facility] [place] 2023-01-12 00:00 Nausea with vomiting, unspecifi ed [facility] [place] Procedures date description facility 2023-01-12 00:00 Visit Code Hold [facility] [place] 2023-01-12 00:00 POC URINALYSIS DIP [facility] [place] 2023-01-12 00:00 POC GLUCOSE BLOOD TEST [facility] [place] 2023-01-12 00:00 POC HCG [facility] [place] Results/Labs test date facility value unit notes Social History date description facility 2023-01-12 00:00 Never smoker [facility] [place] Vital Signs date measurement value units 2023-01-12 00:00 BMI 24.04 kg/m2 2023-01-12 00:00 BP_diastolic 103 mmHg 2023-01-12 00:00 BP_systolic 151 mmHg 2023-01-12 00:00 heart_rate 92 /min 2023-01-12 00:00 height_metric 167.64 cm 2023-01-12 00:00 height_standard 66 in 2023-01-12 00:00 respiration_rate 17 /min 2023-01-12 00:00 temperature_metric 36.5 C 2023-01-12 00:00 temperature_standard 97.7 F 2023-01-12 00:00 weight_metric 67.31 kg 2023-01-12 00:00 weight_standard 148.4 lb
[2023-01-12] MEDS ORDERED: SODIUM CHLORIDE 0.9% 1,000 ML IV STA (12:52)
--- NOTE | 2023-01-12 13:19 | ED Physician Documentation ---
PD HPI NVD - Stated complaint Stated Complaint: DEHYDRATION - Chief complaint Chief Complaint: Abd Pain - History obtained from History obtained from: Patient - Additonal information Additional information: Patient is a 42-year-old female presenting for evaluation of Nausea and vomiting starting yesterday. Patient reports not being able to keep anything down. She went to the walk-in clinic and based on a urine sample was told that she was dehydrated and should be evaluated in the emergency department. They did note she had some tenderness to the right upper quadrant. Patient denies fever. Re ports emesis is bilious. No blood. No diarrhea. Review of Systems Constitutional: denies: Fever Cardiac: denies: Chest pain / pressure Respiratory: denies: Dyspnea GI: reports: Abdominal Pain, Nausea, Vomiting : denies: Dysuria PD PAST MEDICAL HISTORY - Past Medical History Cardiovascular: None Respiratory: None Neuro: None Endocrine/Autoimmune: None GI: None ECHO TECHNICIAN: None : None HEENT: None Psych: None Musculoskeletal: None Derm: None - Past Surgical History Past Surgical History: Yes /ECHO TECHNICIAN: section - Present Medications Home Medications: Ambulatory Orders Medication Instructions Recorded Confirmed Pnv No.95/Ferrous Fum/Folic AC 08/23/18 [ [place]] Hydrocodone/Acetaminophen 1 - 2 each PO Q6H PRN #14 tablet 07/20/19 [Hydrocodon-Acetaminophen 5-325] predniSONE [Deltasone] 60 mg PO DAILY 5 Days #15 tablet 07/20/19 - Allergies Allergies/Adverse Reactions: Allergies Allergy/AdvReac Type Severity Reaction Status Date / Time NSAIDS (Non-Steroidal Allergy Nausea Verified 01/12/23 11:00 Anti-Inflamma Opioids - Morphine Analogues AdvReac Nausea Verified 01/12/23 11:00 - Social History Does the pt smoke?: No Smoking Status: Never smoker Does the pt drink ETOH?: Yes Does the pt have substance abuse?: No - Immunizations Immunizations are current?: Yes - POLST Patient has POLST: No PD ED PE NORMAL - General General: Alert and oriented X 3, No acute distress, Well developed/nourished - HEENT HEENT: Atraumatic, Moist mucous membranes, Pharynx benign - Neck Neck: Supple, no meningeal sign - Cardiac Cardiac: RRR, No murmur - Respiratory Respiratory: No respiratory distress, Clear bilaterally - Abdomen Abdomen: Normal bowel sounds, Soft, Non distended, Other (Mild right upper quadrant tenderness to palpation, no rebound, no guarding) - Derm Derm: Warm and dry - Neuro Neuro: Alert and oriented X 3, No motor deficit, Normal speech Results - Vitals Vitals: Vital Signs - 24 hr 01/12/23 01/12/23 01/12/23 10:54 13:13 15:29 Temperature 36.8 C 36.2 C L Heart Rate 82 74 75 Respiratory 14 14 16 Rate Blood Pressure 154/102 H 153/83 H 150/102 H O2 Saturation 98 100 98 Oxygen O2 Source Room air - Labs Labs: Laboratory Tests 01/12/23 01/12/23 01/12/23 11:10 11:10 13:18 WBC 6.7 RBC 4.38 Hgb 14.4 Hct 42.6 MCV 97.3 MCH 32.9 H MCHC 33.8 RDW 12.8 Plt Count 197 MPV 9.6 Neut # (Auto) 4.8 Lymph # (Auto) 1.2 L [place] # (Auto) 0.6 Eos # (Auto) 0.0 Baso # (Auto) 0.1 Absolute Nucleated RBC 0.00 Nucleated RBC % 0.0 Sodium 133 L Potassium 3.4 L Chloride 97 L Carbon Dioxide 22 Anion Gap 14.0 H BUN 10 Creatinine 0.8 Estimated GFR (MDRD) 78 L Glucose 92 Calcium 9.8 Total Bilirubin 1.3 H AST 48 H ALT 31 Alkaline Phosphatase 55 Total Protein 7.8 Albumin 4.6 Globulin 3.2 Albumin/Globulin Ratio 1.4 Lipase 32 Urine Color YELLOW Urine Clarity CLEAR Urine pH 6.0 Ur Specific [place] >=1.030 H Urine Protein 30 H Urine Glucose (UA) NEGATIVE Urine Ketones >=80 H Urine Occult Blood MODERATE H Urine Nitrite NEGATIVE Urine Bilirubin NEGATIVE Urine Urobilinogen 0.2 (NORMAL) Ur Leukocyte Esterase NEGATIVE Urine RBC 6-10 H Urine WBC 0-3 Ur Squamous Epith Cells FEW Squamous Urine Bacteria None Seen Ur Microscopic Review INDICATED Urine Culture Comments NOT INDICATED Urine HCG, Qual 01/12/23 13:18 WBC RBC Hgb Hct MCV MCH MCHC RDW Plt Count MPV Neut # (Auto) Lymph # (Auto) [place] # (Auto) Eos # (Auto) Baso # (Auto) Absolute Nucleated RBC Nucleated RBC % Sodium Potassium Chloride Carbon Dioxide Anion Gap BUN Creatinine Estimated GFR (MDRD) Glucose Calcium Total Bilirubin AST ALT Alkaline Phosphatase Total Protein Albumin Globulin Albumin/Globulin Ratio Lipase Urine Color Urine Clarity Urine pH Ur Specific [place] Urine Protein Urine Glucose (UA) Urine Ketones Urine Occult Blood Urine Nitrite Urine Bilirubin Urine Urobilinogen Ur Leukocyte Esterase Urine RBC Urine WBC Ur Squamous Epith Cells Urine Bacteria Ur Microscopic Review Urine Culture Comments Urine HCG, Qual NEGATIVE PD Medical Decision Making - ED course Complexity details: reviewed results, re-evaluated patient, d/w patient ED course: Patient is a 42-year-old female presenting for evaluation of nausea and vomiting and mild tenderness to the right upper quadrant. She is afebrile with stable vital signs. She has minimal tenderness on exam.CBC and chemistries were obtained and reviewed with mild elevation of total bilirubin and AST and potassium of 3.4. Right upper quadrant ultrasound was obtained which does not show any gallbladder pathology. Fatty liver. Patient does report that she was a regular heavy drinker but has since stopped. She is feeling better after IV fluids. She received a Zofran at the walk-in clinic. She is counseled on need for close follow-up with primary care provider as well as concerning symptoms to return for. Departure - Departure Disposition: 01 Home, Self Care Clinical Impression: Nausea & vomiting Condition: Stable Instructions: ED Nausea Vomiting Comments: The exact cause for your nausea and vomiting is unclear at this time.Your potassium was slightly low. Your bilirubin and AST levels which are liver markers were slightly elevated. Your ultrasound does not show signs of gallbladder disease or need for surgery. Your ultrasound does show a fatty liver. Your urine has a small amount of microscopic blood in it But there is no infection. I would recommend close follow-up with your primary care provider For recheck of your liver markers as well as your urine. The walk-in clinic [place] has already sent a prescription for antinausea medications. Please continue with a bland diet today and staying hydrated. Return to the ER if you develop any worsening symptoms. Forms: PCP List Discharge Date/Time: 01/12/23 15:35
[2023-01-12 13:29] LABS: GLUCOSE, URINE (UA) NEGATIVE (NEGATIVE); KETONES,URINE (UA) >=80 mg/dL (NEGATIVE); LEUKOCYTE ESTERASE, URINE NEGATIVE (NEGATIVE); NITRITE,URINE NEGATIVE (NEGATIVE); OCCULT BLOOD,URINE MODERATE (NEGATIVE); PROTEIN,URINE 30 mg/dL (NEGATIVE); UROBILINOGEN,URINE 0.2 (NORMAL) E.U./dL (NORMAL)
[2023-01-12 13:41] LABS: BILIRUBIN,URINE NEGATIVE (NEGATIVE); CLARITY,URINE CLEAR (CLEAR); ICTOTEST,URINE NEGATIVE
[2023-01-12 13:42] LABS: BACTERIA,URINE None Seen /HPF (None Seen); SQUAMOUS EPITHELIAL CELL,UR FEW Squamous (<= Few); WBC,URINE 0-3 /HPF (0-5)
[2023-01-12 14:12] LABS: HCG UR QUAL NEGATIVE
--- NOTE | 2023-01-12 14:18 | Ultrasound Report ---
PROCEDURE: Abdomen Limited INDICATIONS: RUQ pain TECHNIQUE: Real-time focused scanning was performed of the abdomen, with image documentation. COMPARISONS: None. FINDINGS: Liver: Liver measures 17.1 cm with steatosis. Gallbladder: Unremarkable. Wall thickness measures 1.6 mm. Biliary ducts: Intrahepatic bile ducts are non-dilated. Extrahepatic bile duct caliber measures 3.5 mm. Normal is 6-7 mm or less in diameter, or 10 mm or less post-cholecystectomy. Pancreas: Visualized portions of the pancreas are sonographically normal. Right kidney: Normal in size and echotexture. Right kidney measures 11.1 cm long. No hydronephrosis or nephrolithiasis. No solid masses. No complex renal cystic lesions which require follow-up. Aorta: Visualized aorta is normal in caliber at less than 3 cm. IVC: Intrahepatic inferior vena cava is patent. Miscellaneous: No free abdominal fluid. IMPRESSION: Mild hepatomegaly with steatosis. Reviewed by: Sherry Garcias MD on 01/12/2023 2:17 PM PDT Approved by: Sherry Garcias MD on 01/12/2023 2:17 PM PDT Station ID: [id number]
[2023-01-12] MEDS ORDERED: POTASSIUM BICARB 25 MEQ TABLET PO STA (14:37)
[2023-01-12 15:34] VITALS: BP 150/102; O2SAT 98
== END 2023-01-12 15:35 | disposition home or self-care (01) ==
LOC: ED 10:45
DX: R11.2 Nausea with vomiting, unspecified (principal)
CPT/HCPCS: 36415; 80053; 81001; 81003; 81025; 83690; 85025; 87086; 99283; 99284

== ENCOUNTER 2023-09-18 22:53 | Emergency (ER) | payer OTHER ==
[2023-09-18] MEDS: SODIUM CHLORIDE 0.9% 1,000 ML IV STA (23:26)
[2023-09-18 23:29] LABS: BASOPHILS # (AUTO) 0.1 10^3/uL (0.0-0.1); BASOPHILS % (AUTO) 0.9 %; EOSINOPHILS # (AUTO) 0.1 10^3/uL (0.0-0.7); HCT - HEMATOCRIT 41.2 % (37.0-47.0); HGB - HEMOGLOBIN 13.7 g/dL (12.0-16.0); LYMPHOCYTES % (AUTO) 44.8 %; MEAN CORPUSCULAR HEMOGLOBIN 32.2 pg (27.0-31.0); MEAN CORPUSCULAR HGB CONC 33.3 g/dL (32.0-36.0); MEAN CORPUSCULAR VOLUME 96.9 fL (81.0-99.0); MEAN PLATELET VOLUME 9.7 fL (7.9-10.8); MONOCYTES # (AUTO) 0.5 10^3/uL (0.0-1.0); MONOCYTES % (AUTO) 6.8 %; NEUTROPHILS # (AUTO) 3.1 10^3/uL (1.5-6.6); NEUTROPHILS % (AUTO) 46.2 %; PLT - PLATELET COUNT 187 10^3/uL (130-450); RED BLOOD COUNT 4.25 10^6/uL (4.20-5.40); RED CELL DISTRIBUTION WIDTH 12.5 % (12.0-15.0); WHITE BLOOD COUNT 6.8 x10^3/uL (4.8-10.8)
[2023-09-18] MEDS: ONDANSETRON 4 MG/2 ML VIAL IVP STA (23:40)
[2023-09-18 23:45] LABS: ALBUMIN 4.9 g/dL (3.2-5.5); ALBUMIN/GLOBULIN RATIO 1.6 (1.0-2.2); ALKALINE PHOSPHATASE 55 IU/L (42-121); ALT ALANINE AMINOTRANSFERASE 43 IU/L (10-60); AST ASPARTATE AMINOTRANSFERASE 52 IU/L (10-42); BILIRUBIN,TOTAL 0.6 mg/dL (0.2-1.0); BUN - BLOOD UREA NITROGEN 14 mg/dL (6-20); CALCIUM 10.4 mg/dL (8.5-10.3); CARBON DIOXIDE - CO2 24 mmol/L (21-32); CHLORIDE 98 mmol/L (101-111); CREATININE 0.7 mg/dL (0.6-1.3); ETOH - ETHANOL < 10.0 mg/dL; GFR - MDRD 91 (>89); GLUCOSE 116 mg/dL (74-104); LIPASE 52 U/L (11-82); POTASSIUM 2.9 mmol/L (3.5-4.5); SODIUM 136 mmol/L (135-145); TOTAL PROTEIN 7.9 g/dL (6.4-8.9)
[2023-09-19 00:25] LABS: BILIRUBIN,URINE NEGATIVE (NEGATIVE); GLUCOSE, URINE (UA) NEGATIVE (NEGATIVE); KETONES,URINE (UA) 15 mg/dL (NEGATIVE); LEUKOCYTE ESTERASE, URINE NEGATIVE (NEGATIVE); NITRITE,URINE NEGATIVE (NEGATIVE); OCCULT BLOOD,URINE LARGE (NEGATIVE); PROTEIN,URINE TRACE mg/dL (NEGATIVE); UROBILINOGEN,URINE 0.2 (NORMAL) E.U./dL (NORMAL)
[2023-09-19 00:28] LABS: CLARITY,URINE CLEAR (CLEAR); HCG UR QUAL NEGATIVE
--- NOTE | 2023-09-19 00:31 | ED Physician Documentation ---
History of Present Illness - Stated complaint Stated Complaint: SHAKY/LIGHT HEAD/SWEATS - Chief complaint Chief Complaint: General - History obtained from History obtained from: Patient - Additonal information Additional information: HPI from patient. Patient was at work when she had sudden onset diaphoresis, "felt like I might pass out" (per patient), feeling "shaky". She was also experiencing lower midline chest burning discomfort, possibly reflux. This was at approximately 9:30 PM tonight while seated. There was no inciting event nor circumstances. She denies weakness. She says she felt flushed and someone in the room then remarked to her that she looked "beet red" (per patient). Episode lasted approximately 15-20 minutes but resolved, asymptomatic at the time of this evaluation. Has intermittent nausea but no vomiting. On my HPI, patient says she is not a daily drinker. She did have small amount of alcohol earlier today, but she says she is neither a heavy nor regular drinker. Review of Systems Constitutional: reports: Sweats. denies: Fever, Chills Eyes: denies: Loss of vision, Decreased vision Cardiac: reports: Reviewed and negative Respiratory: reports: Reviewed and negative GI: reports: Nausea. denies: Abdominal Pain, Vomiting Neurologic: reports: Near syncope. denies: Generalized weakness, Focal weakness, Numbness, Confused, Altered mental status, Headache PD PAST MEDICAL HISTORY - Past Medical History Past Medical History: No Cardiovascular: None Respiratory: None Neuro: None Endocrine/Autoimmune: None GI: None DIRECTOR FIELD SERVICES: None : None HEENT: None Psych: None Musculoskeletal: None Derm: None - Past Surgical History Past Surgical History: Yes Ortho: Other /DIRECTOR FIELD SERVICES: section - Present Medications Home Medications: Ambulatory Orders Medication Instructions Recorded Confirmed No Known Home Medications 09/18/23 09/18/23 - Allergies Allergies/Adverse Reactions: Allergies Allergy/AdvReac Type Severity Reaction Status Date / Time NSAIDS (Non-Steroidal Allergy Nausea Verified 09/18/23 23:05 Anti-Inflamma Opioids - Morphine Analogues AdvReac Nausea Verified 09/18/23 23:05 - Social History Does the pt smoke?: No Smoking Status: Never smoker Does the pt drink ETOH?: Yes ETOH Use: Liquor Does the pt have substance abuse?: No - Immunizations Immunizations are current?: Yes - POLST Patient has POLST: No PD ED PE NORMAL - Vitals Vital signs reviewed: Yes - General General: Alert and oriented X 3, No acute distress, Well developed/nourished - HEENT HEENT: Moist mucous membranes - Neck Neck: Supple, no meningeal sign - Cardiac Cardiac: RRR, No murmur, No gallop, No rub - Respiratory Respiratory: No respiratory distress, Clear bilaterally - Abdomen Abdomen: Soft, Non tender - Neuro Neuro: Alert and oriented X 3, 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 Relevant findings are: Rate: Rate (enter#) (90) Rhythm: NSR [place]: Normal Intervals: Normal [place] QRS: Normal Ischemia: Normal ST segments - Labs Labs: Laboratory Tests 09/18/23 09/18/23 09/18/23 00:22 23:01 23:26 WBC 6.8 RBC 4.25 Hgb 13.7 Hct 41.2 MCV 96.9 MCH 32.2 H MCHC 33.3 RDW 12.5 Plt Count 187 MPV 9.7 Neut # (Auto) 3.1 Lymph # (Auto) 3.0 [place] # (Auto) 0.5 Eos # (Auto) 0.1 Baso # (Auto) 0.1 Absolute Nucleated RBC 0.00 Nucleated RBC % 0.0 Sodium Potassium Chloride Carbon Dioxide Anion Gap BUN Creatinine Estimated GFR (MDRD) Glucose POC Whole Bld Glucose 121 H Calcium Total Bilirubin AST ALT Alkaline Phosphatase Total Protein Albumin Globulin Albumin/Globulin Ratio Lipase Urine Color YELLOW Urine Clarity CLEAR Urine pH 6.0 Ur Specific [place] >=1.030 H Urine Protein TRACE Urine Glucose (UA) NEGATIVE Urine Ketones 15 H Urine Occult Blood LARGE H Urine Nitrite NEGATIVE Urine Bilirubin NEGATIVE Urine Urobilinogen 0.2 (NORMAL) Ur Leukocyte Esterase NEGATIVE Urine RBC 6-10 H Urine WBC 0-3 Ur Squamous Epith Cells FEW Squamous Urine Bacteria Rare Urine Mucus Moderate Strands Ur Microscopic Review INDICATED Urine Culture Comments NOT INDICATED Urine HCG, Qual NEGATIVE Ethyl Alcohol 09/18/23 23:26 WBC RBC Hgb Hct MCV MCH MCHC RDW Plt Count MPV Neut # (Auto) Lymph # (Auto) [place] # (Auto) Eos # (Auto) Baso # (Auto) Absolute Nucleated RBC Nucleated RBC % Sodium 136 Potassium 2.9 L Chloride 98 L Carbon Dioxide 24 Anion Gap 14.0 H BUN 14 Creatinine 0.7 Estimated GFR (MDRD) 91 Glucose 116 H POC Whole Bld Glucose Calcium 10.4 H Total Bilirubin 0.6 AST 52 H ALT 43 Alkaline Phosphatase 55 Total Protein 7.9 Albumin 4.9 Globulin 3.0 Albumin/Globulin Ratio 1.6 Lipase 52 Urine Color Urine Clarity Urine pH Ur Specific [place] Urine Protein Urine Glucose (UA) Urine Ketones Urine Occult Blood Urine Nitrite Urine Bilirubin Urine Urobilinogen Ur Leukocyte Esterase Urine RBC Urine WBC Ur Squamous Epith Cells Urine Bacteria Urine Mucus Ur Microscopic Review Urine Culture Comments Urine HCG, Qual Ethyl Alcohol < 10.0 PD Medical Decision Making - ED course Complexity details: reviewed results, re-evaluated patient, considered differential, d/w patient ED course: Only notable finding on blood tests is hypokalemia (2.9) for which she is given 25meq PO potassium bicarbonate. This finding is unlikely to account for her symptoms. The remainder of tonight's tests also do not have any abnormalities that would explain etiology of patient's symptoms. Results d/w patient. Given 1 liter NS IV as well as 4mg IV zofran. Return precautions reviewed. Advised to follow up with PCP for reevaluation of both the hypokalemia as well as possible further testing regarding tonight's symptoms. Departure - Departure Disposition: 01 Home, Self Care Clinical Impression: Hypokalemia, Near syncope Condition: Good Instructions: ED Potassium Deficiency, ED Near Syncope Unkn Comments: There are no diagnostic findings on tonight's tests. As we discussed, your potassium level is low, but not to an extent that should cause any symptoms nor is it dangerously low. The cause of your symptoms is not apparent at this time. Contact your primary care provider's office when they are next open to arrange for next available appointment for reevaluation/follow-up. Be sure to mention your low potassium level (2.9), as they might recheck this when you follow-up with them. Discharge Date/Time: 09/19/23 00:55
[2023-09-19 00:34] LABS: WBC,URINE 0-3 /HPF (0-5)
[2023-09-19 00:35] LABS: BACTERIA,URINE Rare /HPF (None Seen); MUCUS,URINE Moderate Strands; SQUAMOUS EPITHELIAL CELL,UR FEW Squamous (<= Few)
[2023-09-19] MEDS: POTASSIUM BICARB 25 MEQ TABLET PO STA (00:39)
[2023-09-19 01:05] VITALS: BP 135/79; O2SAT 98
== END 2023-09-19 00:55 | disposition home or self-care (01) ==
LOC: ED 22:53
DX: R55 Syncope and collapse (principal); E87.6 Hypokalemia
CPT/HCPCS: 36415; 80053; 81001; 81025; 82077; 83690; 85025; 93005; 96374; 99284; A9270; 81003; 87086